=== PATIENT | male | born 1985 | race Caucasian/White ===

== ENCOUNTER → 2016-12-16 17:53 | Emergency (ER) | payer SELFPAY ==
[~2016-12-16 17:53] MED LIST: Tetan/Diph/Pertus SYR(Tdap)* 0.5 ML SYR(BOOSTRIX) use SYR IM ONE
[2016-12-16 17:59] VITALS: BP 138/88
--- NOTE | 2016-12-16 18:34 | RAD ---
INDICATION: Fish hook in finger. TECHNIQUE: 3 views of the right index finger were obtained. FINDINGS: There is a barbed treble type fishhook present in the volar soft tissues. The tip of the hook is located just distal to the tuft of the distal phalanx. No fracture is seen. IMPRESSION: BARBED FISHHOOK IN THE SOFT TISSUES ADJACENT TO THE TUFT OF THE DISTAL PHALANX.
--- NOTE | 2016-12-16 18:57 | ED ---
Skin Complaint - HPI Summary HPI Summary: Patient presents with embedded fish hook in the index finger of the right hand x 45 minutes. Tetanus is > 10 years ago. Denies other injuries. Denies pain. Minimal blood loss. Hook is apporx 1cm in length and curved. He denies health problems or allergies. He is able to feel his finger and hand and denies vascular issues or color or temperature changes. - History of Current Complaint Chief Complaint: EDExtremityUpper Time Seen by Provider: 12/16/16 18:03 Stated Complaint: HOOK IN RT POINTER FINGER Hx Obtained From: Patient Onset/Duration: Started Minutes Ago Skin Exposure Onset/Duration: Minutes Ago Timing: Constant Onset Severity: Mild Current Severity: Mild Pain Intensity: 2 Pain Scale Used: 0-10 Numeric Skin Location: Discrete - distal portion of index finger Aggravating Symptom(s): Nothing Alleviating Symptom(s): Nothing Related History: Foreign Body - Allergy/Home Medications Allergies/Adverse Reactions: Allergies Allergy/AdvReac Type Severity Reaction Status Date / Time No Known Allergies Allergy Verified 12/16/16 18:43 PMH/Surg Hx/FS Hx/Imm Hx Previously Healthy: Yes - Immunization History Hx Pertussis Vaccination: No Immunizations Up to Date: Unable to Obtain/Confirm Infectious Disease History: No Infectious Disease History: Denies: Traveled Outside the [place] in Last 30 Days - Social History Occupation: Employed Full-time Lives: With Family Alcohol Use: Daily Alcohol Amount: "a couple per day" Hx Substance Use: No Substance Use Type: Reports: None Hx Tobacco Use: Yes Smoking Status (MU): Heavy Every Day Tobacco Smoker Review of Systems Constitutional: Negative Eyes: Negative Cardiovascular: Negative Respiratory: Negative Positive: no symptoms reported, see HPI Positive: Other - foreign body Neurological: Negative Psychological: Normal All Other Systems Reviewed And Are Negative: Yes Physical Exam Triage Information Reviewed: Yes Vital Signs On Initial Exam: Initial Vitals Temp Pulse Resp BP Pulse Ox 97.4 F 61 15 138/88 98 12/16/16 17:57 12/16/16 17:57 12/16/16 17:57 12/16/16 17:57 12/16/16 17:57 Completion Of Physical Exam Limited Due To: Dementia Appearance: Positive: Well-Appearing, No Pain Distress, Well-Nourished Skin: Positive: Warm, Skin Color Reflects Adequate Perfusion, Other - foreign body in distal portion of right index finger Eyes: Positive: Normal, PIETRO, Conjunctiva Clear Neck: Positive: Supple, Nontender, No Lymphadenopathy Respiratory/Lung Sounds: Positive: Clear to Auscultation, Breath Sounds Present Cardiovascular: Positive: RRR, Pulses are Symmetrical in both Upper and Lower Extremities Musculoskeletal: Positive: Normal, Strength/ROM Intact Neurological: Positive: Sensory/Motor Intact, Alert, Oriented to Person Place, Time Psychiatric: Positive: Normal Diagnostics - Vital Signs Vital Signs Temp Pulse Resp BP Pulse Ox 12/16/16 17:59 97.4 F 64 16 138/88 100 12/16/16 17:57 97.4 F 61 15 138/88 98 - Laboratory Lab Statement: Any lab studies that have been ordered have been reviewed, and results considered in the medical decision making process. Course/Dx - Course Course Of Treatment: Patient arrives with fish hook FB in distal portion of right index finger. Denies pain or vascular compromise. Denies numbness or tingling. Patient tolerated 1ml localized lidocaine 1% well. Fish hook dislodged successfully. Telfa and gauze dressing applied. Return precautions given. Tetanus updated. - Differential Diagnoses - Skin Complaint Differential Diagnoses: Other - fish hook, foreign body - Diagnoses Provider Diagnoses: Fish hook injury of finger Discharge - Discharge Plan Condition: Stable Disposition: HOME Patient Education Materials: Soft Tissue Foreign Body (ED) Referrals: Non Staff,Doctor [Primary Care Provider] - Additional Instructions: If you develop any worsening bleeding, redness, streaks of red around the wound , swelling, abnormal drainage or you develop a fever - you need to come back to the ED right away. Keep area covered x 24 hours Tetanus updated
== END | disposition home or self-care (01) ==
LOC: ED 17:53
DX: S60.450A Superficial foreign body of right index finger, initial encounter (principal); X58.XXXA Exposure to other specified factors, initial encounter; Y93.9 Activity, unspecified; Y92.9 Unspecified place or not applicable; F17.210 Nicotine dependence, cigarettes, uncomplicated
CPT/HCPCS: 73140; 90471; 90715; 99281